=== PATIENT | female | born 1970 | race Two or more races ===

== ENCOUNTER 2017-03-24 05:41 | Emergency (ER) | payer BC, OTHER ==
[~2017-03-24] VITALS: Ht 154.9 cm; Wt 49.9 kg
[2017-03-24] MEDS: LORAZEPAM 0.5 MG TABLET PO ONE (07:07)
[2017-03-24] MEDS ORDERED: LORAZEPAM 1 MG TABLET ONE (07:19)
--- NOTE | 2017-03-24 07:23 | NUR ---
Patient is resting comfortably in bed with eyes closed. PATIENT IS PAIN FREE AT THIS TIME. Patient for psych evaluation at this time- medically cleared by Dr Maria.
[2017-03-24 07:31] LABS: BASOPHILS % (AUTO) 0.3 % (0.0-2.0); EOSINOPHILS # (AUTO) 0.1 K/uL (0.0-0.7); EOSINOPHILS % (AUTO) 1.1 % (0.0-7.0); HEMATOCRIT 37.6 % (37-47); HEMOGLOBIN 12.4 G/DL (12.0-16.0); LYMPHOCYTES # (AUTO) 1.4 K/UL (0.8-4.8); LYMPHOCYTES % (AUTO) 18.4 % (20.5-51.5); MEAN CORPUSCULAR HEMOGLOBIN 27.9 UUG (27.0-31.0); MEAN CORPUSCULAR HGB CONC 33 g/dL (32.0-37.0); MEAN CORPUSCULAR VOLUME 84.8 FL (81.0-99.0); MONOCYTES # (AUTO) 0.7 K/UL (0.1-1.30); MONOCYTES % (AUTO) 9.3 % (0.0-11.0); NEUTROPHILS # (AUTO) 5.7 K/UL (1.8-8.9); NEUTROPHILS % (AUTO) 70.9 % (38.5-71.5); PLATELET COUNT (AUTO) 378 K/UL (150-450); RED BLOOD CELL COUNT(AUTO) 4.44 MIL/UL (4.2-5.4); WHITE BLOOD COUNT (AUTO) 7.9 K/UL (4.0-11.2)
[2017-03-24 07:52] LABS: CARBON DIOXIDE 28 mmol/L (21-32); CHLORIDE 105 mmol/L (98-107); CREATININE 0.6 mg/dL (0.6-1.3); GLUCOSE 92 mg/dL (74-106); POTASSIUM 3.5 mmol/L (3.5-5.1); UREA NITROGEN, BLOOD 11 mg/dL (7-18)
[2017-03-24 07:58] LABS: ALKALINE PHOSPHATASE 49 U/L (50-136); ASPARTATE AMINOTRANSFERASE 19 U/L (15-37); BILIRUBIN,DIRECT 0.1 mg/dL (0.0-0.2); BILIRUBIN,TOTAL 0.6 mg/dL (0.2-1.0); ETHANOL < 3 MG/DL (0-0)
[2017-03-24 08:11] LABS: ACETAMINOPHEN < 2.0 ug/mL (10-30); ALANINE AMINOTRANSFERASE 20 U/L (14-59)
[2017-03-24 08:13] LABS: *BILIRUBIN,URIN NEGATIVE (NEGATIVE); *BLOOD, URINE Trace-lysed (NEGATIVE); *CLARITY,URINE CLEAR (CLEAR); *COLOR,URINE YELLOW (YELLOW); *KETONES,URINE NEGATIVE (NEGATIVE); *PROTEIN,URINE NEGATIVE (NEGATIVE); *UROBILINOGEN,URINE 0.2 E.U./dl (NORMAL); LEUKOCYTE ESTERASE ,URINE NEGATIVE (NEGATIVE); NITRITE, URINE NEGATIVE (NEGATIVE); UGLUCOSE NEGATIVE (NEGATIVE)
--- NOTE | 2017-03-24 08:15 | NUR ---
Breakfast tray provided.
[2017-03-24 08:22] LABS: *AMPHETAMINE, URINE NEGATIVE (NEGATIVE); *BARBITURATE, URINE NEGATIVE (NEGATIVE); *CANNABINOID, URINE POSITIVE (NEGATIVE); *COCCAINE, URINE NEGATIVE (NEGATIVE); *OPIATE, URINE NEGATIVE (NEGATIVE); *PHENCYCLIDINE SCREEN,URINE NEGATIVE (NEGATIVE)
[2017-03-24 08:26] LABS: BACTERIA,URINE NONE SEEN /HPF (NONE SEEN); MUCUS,URINE FEW /LPF (0-FEW); SQUAMOUS EPITHELIAL CELL,UR MODERATE /HPF (NONE SEEN)
--- NOTE | 2017-03-24 08:44 | NUR ---
Tejinder Roa is at bedside evaluating the patient.
--- NOTE | 2017-03-24 09:24 | NUR ---
Pt placed on 5150 hold (danger to self ) by Tejinder Roa. Nursing office notified for sitter for 1:1 observation, security called for 1:1 observation until a sitter is available.
--- NOTE | 2017-03-24 10:02 | NUR ---
Per Tejinder Roa, this patient is for transfer to another acute psych facility and we are now waiting a call from [facility] and/or from [facility] psych rehab facility.
--- NOTE | 2017-03-24 10:35 | NUR ---
Received call from Ute from [facility] ( [address] [facility] [phone]) who stated they will accept the patient. accepting, pt will go to [address] [place] [address], room [address], call [phone] for report.
--- NOTE | 2017-03-24 11:16 | NUR ---
Patient tranfers to outside Facility: [facility] Physician: Dr Varela Location:[facility]-room [address] Nurse: Dori osborne hands off report
--- NOTE | 2017-03-24 11:59 | NUR ---
Hands off report to [facility] staff. Patient left ER via BLS ambulance.
== END 2017-03-24 11:59 | disposition short-term general hospital (02) ==
LOC: ER 05:43
DX: R45.851 Suicidal ideations (principal); R07.9 Chest pain, unspecified; F32.9 Major depressive disorder, single episode, unspecified; F41.9 Anxiety disorder, unspecified
CPT/HCPCS: 36415; 80048; 80076; 80307; 81001; 84703; 85025; 93005; 99285; A4663; G0480 ×2; G0481